=== PATIENT | female | born 1945 | race Caucasian/White ===

== ENCOUNTER 2021-12-31 07:13 | Inpatient (IN) | payer MEDICARE, OTHER ==
[~2021-12-31] VITALS: Ht 172.7 cm; Wt 49.9 kg
--- NOTE | 2021-12-31 07:13 | NUR ---
PT BIBRA 839 FROM HOME C/O GEN WEAKNESS X 2 MONTHS AND GLF LAST NIGHT. PT IS AAOX4, NOT IN RESPIRATORY DISTRESS, HOOKED TO GEOTHERMAL OPERATING ENGINEER, KEPT RESTED AND COMFORTABLE. WILL CONTINUE TO MONITOR.
--- NOTE | 2021-12-31 07:29 | NUR ---
AT BEDSIDE FOR EVAL.
--- NOTE | 2021-12-31 07:30 | NUR ---
IV LINE ESTABLISHED BLOOD DRAWN AND SENT TO LAB.
[2021-12-31] MEDS ORDERED: THYR90TA PO (07:43)
[2021-12-31] MEDS ORDERED: IV NS 0.9% 1,000 ML BAG IV ONE (08:00)
--- NOTE | 2021-12-31 08:16 | NUR ---
URINE SPECIMEN COLLECTED AND SENT TO LAB.
--- NOTE | 2021-12-31 08:37 | NUR ---
PT IS WHEELED TO CT SCAN VIA [facility].
[2021-12-31 08:46] LABS: BASOPHILS % (AUTO) 0.1 % (0.0-2.0); EOSINOPHILS % (AUTO) 0.2 % (0.0-6.0); HEMATOCRIT 39 % (33-45); HEMOGLOBIN 13.2 g/dL (11.5-14.8); LYMPHOCYTES # (AUTO) 0.5 K/uL (0.8-4.8); LYMPHOCYTES % (AUTO) 6.1 % (20.0-44.0); MEAN CORPUSCULAR HGB CONC 34 g/dl (31.0-36.0); MEAN CORPUSCULAR VOLUME 89 fL (82-100); MONOCYTES # (AUTO) 0.9 K/uL (0.1-1.30); MONOCYTES % (AUTO) 11.8 % (2.0-12.0); NEUTROPHILS # (AUTO) 6.1 K/uL (1.8-8.9); NEUTROPHILS % (AUTO) 81.8 % (43.0-81.0); PLATELET COUNT (AUTO) 257 K/uL (150-450); RED BLOOD CELL COUNT(AUTO) 4.41 MIL/uL (4.0-5.2); WHITE BLOOD COUNT (AUTO) 7.5 K/uL (4.3-11.0)
[2021-12-31 09:14] LABS: ALANINE AMINOTRANSFERASE 23 U/L (12-78); ALBUMIN 3.3 g/dL (3.4-5.0); ALKALINE PHOSPHATASE 67 U/L (46-116); ASPARTATE AMINOTRANSFERASE 25 U/L (15-37); BILIRUBIN,DIRECT 0.2 mg/dL (0.0-0.2); BILIRUBIN,TOTAL 0.8 mg/dL (0.2-1.0); CALCIUM, SERUM 9.1 mg/dL (8.5-10.1); CARBON DIOXIDE 30 mmol/L (21-32); CHLORIDE 99 mmol/L (98-107); CREATININE 0.6 mg/dL (0.6-1.3); GLUCOSE 108 mg/dL (74-106); POTASSIUM 2.9 mmol/L (3.5-5.1); SODIUM SERUM 137 mmol/L (136-145); TOTAL PROTEIN, SERUM 7.4 g/dL (6.4-8.2); UREA NITROGEN, BLOOD 18 mg/dL (7-18)
[2021-12-31 09:16] LABS: BILIRUBIN,URINE NEGATIVE (NEGATIVE); COLOR,URINE YELLOW (YELLOW); LEUKOCYTE ESTERASE ,URINE NEGATIVE (NEGATIVE); NITRITE, URINE NEGATIVE (NEGATIVE); PH,URINE 7.5 (5.0-8.0); PROTEIN,URINE NEGATIVE (NEGATIVE); UGLUCOSE NEGATIVE (NEGATIVE)
--- NOTE | 2021-12-31 09:37 | NUR ---
PT BP 191/98 REPORTED TO .
[2021-12-31] MEDS ORDERED: hydrALAZINE HCL IV 20 MG VIAL ONE (09:39)
--- NOTE | 2021-12-31 09:57 | NUR ---
COVID ANTIGEN AND PCR SPECIMEN OBTAINED AND SENT TO LAB.
[2021-12-31] MEDS ORDERED: hydrALAZINE HCL IV 20 MG VIAL IV ONE (10:00)
[2021-12-31] MEDS ORDERED: IV PREMIX D5 1/2NS + KCL 1,000 ML IV ONE (10:00)
--- NOTE | 2021-12-31 10:26 | NUR ---
MOVE SHEET SUBMITTED AND CALLED FOR BED.
[2021-12-31 10:28] LABS: RBC,URINE 0-3 /HPF (0-2); SQUAMOUS EPITHELIAL CELL,UR Rare /HPF (None Seen); URINE AMORPHOUS PHOSPHATES Moderate /HPF (None Seen); WBC,URINE 0-2 /HPF (0-3)
[2021-12-31 10:29] LABS: BACTERIA,URINE Few /HPF (None Seen)
[2021-12-31 10:31] LABS: THYROID STIMULATING HORMONE 0.451 uIU/mL (0.358-3.74)
--- NOTE | 2021-12-31 11:01 | NUR ---
PAGED EPIC CIGARETTE INSPECTOR.
--- NOTE | 2021-12-31 11:30 | NUR ---
SADIE BERNAL AT BEDSIDE FOR EVAL.
--- NOTE | 2021-12-31 11:55 | NUR ---
CALLED HOUSE [facility]P FOR MED SURG BED.
[2021-12-31] MEDS ORDERED: Z GUARD REMEDY 4 OZ OINT TP PRN (12:00)
[2021-12-31] MEDS ORDERED: MAG HYDROX/AL HYDROX/SIMETH 30 ML UDC PO PRN (12:00)
[2021-12-31] MEDS ORDERED: ACETAMINOPHEN 325 MG TABLET PO PRN (12:00)
[2021-12-31] MEDS ORDERED: ENOXAPARIN SODIUM 30 MG/0.3 ML DISP.SYRIN SQ SCH (12:00)
[2021-12-31] MEDS ORDERED: ONDANSETRON HCL/PF 4 MG/2 ML VIAL IVP PRN (12:00)
[2021-12-31] MEDS ORDERED: MAGNESIUM HYDROXIDE 30 ML UDC PO PRN (12:00)
[2021-12-31] MEDS ORDERED: MORPHINE SULFATE INJ 2 MG/ML DISP.SYRIN IV PRN (12:00)
[2021-12-31] MEDS ORDERED: HYDROCODONE/APAP 5/325MG TABLET PO PRN (12:00)
[2021-12-31] MEDS ORDERED: TEMAZEPAM 15 MG CAPSULE PO PRN (12:00)
[2021-12-31] MEDS ORDERED: ENOXAPARIN SODIUM 30 MG/0.3 ML DISP.SYRIN ONE (12:06)
--- NOTE | 2021-12-31 13:40 | NUR ---
GOT BED 102 AFTER 1400
--- NOTE | 2021-12-31 13:56 | NUR ---
CALLED [facility]E FOR REPORT RN NOT AVAILABLE.
--- NOTE | 2021-12-31 14:20 | NUR ---
REPORT GIVEN TO ZACK FELIX FOR ILEANA. WITH ONGOING IVF INFUSING WELL.
--- NOTE | 2021-12-31 14:30 | NUR ---
EXERCISE EQUIPMENT REPAIR TECHNICIAN NOTES RECEIVED PATIENT FROM ED. REPORT RECEIVED FROM ZACK VICK. PT ARRIVED WITH STABLE VITALS. A/O X 3-4 WITH PERIODS OF FORGETFULNESS. NO SOB. NO ACUTE SIGNS OF DISTRESS NOTED. NO C/O PAIN AT THIS TIME.BREATHING IS EVEN AND UNLABORED. ORIENTED PT TO CALL LIGHT, STAFF AND UNIT. IV ACCESS RAC#18 PATENT AND INTACT. FALL AND SAFETY PRECAUTIONS IMPLEMENTED WITH BED LOW AND LOCKED WITH SIDE RAILS UP X 2. WILL CONTINUE TO MONITOR THROUGHOUT SHIFT.
[2021-12-31] MEDS: IV NS 0.9% 1,000 ML IV PRN (16:11)
[2021-12-31 17:00] VITALS: BP 145/68
--- NOTE | 2021-12-31 18:30 | NUR ---
RN CLOSING NOTES PT IS IN BED, RESTING COMFORTABLY. A/O X 3-4 WITH PERIODS OF FORGETFULNESS. NO SOB. NO ACUTE SIGNS OF DISTRESS NOTED. NO C/O PAIN AT THIS TIME. BREATHING IS EVEN AND UNLABORED. IV ACCESS RAC#18 PATENT AND INTACT WITH NS 0.9% RUNNING AT 75MLS/HR. FALL AND SAFETY PRECAUTIONS MAINTAINED WITH BED LOW AND LOCKED WITH SIDE RAILS UP X 2. ALL NEEDS MET THROUGHOUT SHIFT. WILL ENDORSE CONTINUITY OF CARE TO ONCOMING SHIFT.
--- NOTE | 2021-12-31 19:10 | NUR ---
RN NOTES RECEIVED REPORT FROM MORNING NURSE. PATIENT A/O X3 WITH PERIODS OF CONFUSION NO SIGN OF DISTRESS OR DISCOMFORT AT THIS TIME. PATIENT ON ROOM AIR SATING 98%. WITH IV ACCESS AT R AC #18 PATENT FLUSHES WELL. WITH ONGOING IVF OF PNS @ 75 CC/HR. vITAL SIGNS TAKEN AND RECORDED. AFEBRILE. ALL SAFETY MEASURES IN PLACE AT ALL TIMES. CALL LIGHT WITHIN REACH. HOB ELEVATED. BED ON LOWEST POSITION AND LOCKED. WILL CONTINUE TO MONITOR THE PATIENT
[2021-12-31 20:00] VITALS: BP 111/59
[2022-01-01 04:00] VITALS: BP 147/75
[2022-01-01] MEDS: IV NS 0.9% 1,000 ML IV PRN (05:50)
--- NOTE | 2022-01-01 06:50 | NUR ---
RN NOTES PATIENT IN BED REMAIN STABLE NO SIGNIFICANT CHANGES IN HEALTH CONDITION. NO DISTRESS. PATIENT HAVE AN EPISODES OD CONFUSION. ALL DUE MEDS GIVEN ORDERED. ALL NEEDS ATTENDED PROMPTLY. ALL SAFETY MEASURES IN PLACE AT ALL TIMES. HOB ELEVATED. CALL LIGHT WITHIN REACH. BED ON LOWEST POSITION AND LOCKED. WILL CLOSELY MONITOR HE PATIENT. ENDORSED TO MORNING RN FOR ILEANA
[2022-01-01 07:00] LABS: BASOPHILS % (AUTO) 0.1 % (0.0-2.0); EOSINOPHILS % (AUTO) 0.1 % (0.0-6.0); HEMATOCRIT 36 % (33-45); LYMPHOCYTES # (AUTO) 0.5 K/uL (0.8-4.8); LYMPHOCYTES % (AUTO) 7.9 % (20.0-44.0); MEAN CORPUSCULAR HGB CONC 33 g/dl (31.0-36.0); MEAN CORPUSCULAR VOLUME 89 fL (82-100); MONOCYTES % (AUTO) 15.2 % (2.0-12.0); NEUTROPHILS # (AUTO) 5.2 K/uL (1.8-8.9); NEUTROPHILS % (AUTO) 76.7 % (43.0-81.0); PLATELET COUNT (AUTO) 245 K/uL (150-450); RED BLOOD CELL COUNT(AUTO) 4.08 MIL/uL (4.0-5.2); WHITE BLOOD COUNT (AUTO) 6.8 K/uL (4.3-11.0)
[2022-01-01 07:45] LABS: CREATININE 0.6 mg/dL (0.6-1.3); MAGNESIUM 1.9 mg/dL (1.8-2.4); PHOSPHORUS 2.7 mg/dL (2.5-4.9)
[2022-01-01 07:55] LABS: CALCIUM, SERUM 8.7 mg/dL (8.5-10.1)
[2022-01-01 08:04] LABS: POTASSIUM 2.8 mmol/L (3.5-5.1)
[2022-01-01 08:05] LABS: THYROID STIMULATING HORMONE 0.676 uIU/mL (0.358-3.74)
[2022-01-01] MEDS ORDERED: POTASSIUM CHLORIDE 20 MEQ TAB.PRT.SR PO ONE ×2 (08:30→12:00)
[2022-01-01] MEDS: PANTOPRAZOLE 40 MG TABLET.DR PO SCH (08:49)
[2022-01-01] MEDS: THYROID 30 MG TABLET PO SCH (08:49)
[2022-01-01] MEDS: ENOXAPARIN SODIUM 40 MG/0.4 ML DISP.SYRIN SQ SCH (08:50)
[2022-01-01 10:04] LABS: LYMPHOCYTES % (MANUAL) 6 % (16-48); MONOCYTES % (MANUAL) 16 % (0-11.0); NEUTROPHILS % (MANUAL) 78 (42-76)
[2022-01-01 12:00] VITALS: BP 171/89
[2022-01-01] MEDS ORDERED: ENSURE ENLIVE 237 ML LIQUID (VANILLA) PO SCH (17:00)
--- NOTE | 2022-01-01 19:15 | NUR ---
RN OPENING NOTES RECEIVED PT IN BED, A/O X 3-4, RESPIRATORY EVEN AND UNLABORED, NO SOB NOTED, NO S/S OF DISTRESS NOTED . PATIENT ON ROOM AIR . PATIENT NOTED WITH RAC #18, PATENT, INTACT AND FLUSHED WITH NS. ON HERRING CATHETER INTACT, INPLACED DRAINING WELL. ALL SAFETY MEASURES PROVIDED. BED IN LOWEST POSITION, LOCKED, BED ALARM ARMED. CALL LIGHT WITHIN REACH. WILL CONTINUE TO MONITOR.
--- NOTE | 2022-01-01 19:26 | NUR ---
RN NOTES PT RESTING IN BED, A/O X 3-4 WITH PERIODS OF FORGETFULNESS. NO SOB. NO ACUTE SIGNS OF DISTRESS NOTED. NO C/O PAIN AT THIS TIME. BREATHING IS EVEN AND UNLABORED. IV ACCESS RAC#18 PATENT AND INTACT. FALL AND SAFETY PRECAUTIONS MAINTAINED WITH BED LOW AND LOCKED WITH SIDE RAILS UP X 2. ALL NEEDS MET THROUGHOUT SHIFT. WILL ENDORSE CONTINUITY OF CARE TO ONCOMING SHIFT. DUE MEDICATIONS GIVEN.
[2022-01-01 20:00] VITALS: BP 185/89
--- NOTE | 2022-01-01 20:30 | NUR ---
RN NOTES PATIENT NOTED WITH BP 185/89, PATIENT ALERT ORIENTED DENIES HEADACHE AND DIZZINESS. LEFT MESSAGE TO MD'S OFFICE, WAITING FOR CALL BACK.
--- NOTE | 2022-01-01 20:42 | NUR ---
RN NOTES RECEIVED CALLED BACK FROM DR. LORD WITH NEW ORDER HYDRALAZINE 25MG PO Q6HRS. PRN FOR SBP ABOVE 160 NOTED AND CARRIED OUT. HYDRALAZINE 25MG PO GIVEN. CONTINUE TO MONITOR.
[2022-01-01] MEDS: hydrALAZINE HCL 25 MG TABLET PO PRN (21:04)
[2022-01-02 04:00] VITALS: BP 174/96
[2022-01-02 04:49] VITALS: BP 174/96
[2022-01-02] MEDS: hydrALAZINE HCL 25 MG TABLET PO PRN (04:49)
--- NOTE | 2022-01-02 05:01 | NUR ---
RN notes Received patient in bed resting comfortably with no distress noted. Breathing even and unlabored. On room air tolerating well. Alert and oriented, able to verbally communicate needs. Noted with elevated BP 174/96. Hydralazine 25mg given at 0449. Will continue to monitor. Kept clean and dry. Will endorse to next shift for continuity of care.
[2022-01-02] MEDS: PANTOPRAZOLE 40 MG TABLET.DR PO SCH (07:30)
--- NOTE | 2022-01-02 08:11 | NUR ---
RN Opening Note Patient received in bed, AO x 3-4, forgetful, no distress observed, able to responds all stimuli. Respiratory even and unlabored on room air. Skin is warm to touch, keep clean/dry, intact IV site. Kept elevated HOB for ensure airway/aspiration precaution and remain lower position of the bed for safety. call light within reach, will continue to monitor.
[2022-01-02] MEDS: THYROID 30 MG TABLET PO SCH (09:19)
[2022-01-02] MEDS: ENOXAPARIN SODIUM 40 MG/0.4 ML DISP.SYRIN SQ SCH (09:22)
--- NOTE | 2022-01-02 12:05 | NUR ---
PAtient discharge ti Addendum: 01/02/22 at 1207 by CONCETTA VALDEZ RN Error
[2022-01-02 12:07] LABS: CALCIUM, SERUM 8.8 mg/dL (8.5-10.1); CREATININE 0.6 mg/dL (0.6-1.3); POTASSIUM 3.1 mmol/L (3.5-5.1)
--- NOTE | 2022-01-02 12:07 | NUR ---
Patient discharge to [facility], given report Rayne RN include shirt ironer supervisor time.
[2022-01-02] MEDS ORDERED: POTASSIUM CHLORIDE 20 MEQ TAB.PRT.SR PO ONE (12:30)
--- NOTE | 2022-01-02 12:36 | NUR ---
Patient noted potassium level is 3.1, given 60meq before patient discharge.
--- NOTE | 2022-01-02 13:32 | NUR ---
2 vacation guide picked up patient and given report, in stable condition.
== END 2022-01-02 13:33 | DRG 552 ==
LOC: EDSEX 07:17 → ER 07:17 → MEDSG1 13:47
PROVIDERS: ADMIT Nurse Practitioner Acute Care; ATTEND Nurse Practitioner Acute Care
DX: M51.37 Other intervertebral disc degeneration, lumbosacral region (principal); D84.9 Immunodeficiency, unspecified; R26.9 Unspecified abnormalities of gait and mobility; E87.6 Hypokalemia; J44.9 Chronic obstructive pulmonary disease, unspecified; E03.9 Hypothyroidism, unspecified; Z20.822 Contact with and (suspected) exposure to COVID-19; Z88.0 Allergy status to penicillin; Z88.2 Allergy status to sulfonamides; Z91.018 Allergy to other foods; G43.909 Migraine, unspecified, not intractable, without status migrainosus; Z87.891 Personal history of nicotine dependence; I70.0 Atherosclerosis of aorta; I70.8 Atherosclerosis of other arteries; I71.4 Abdominal aortic aneurysm, without rupture; M48.00 Spinal stenosis, site unspecified; W19.XXXA Unspecified fall, initial encounter
CPT/HCPCS: 36415; 70450-TC; 71045-TC; 72131-TC; 80048-TC; 80076-TC; 81001; 82962-TC; 83735-TC; 84100-TC; 84443-TC; 84484-TC; 85025-TC; 87081-TC; 92526; 92611-TC; 97116-TC; 97530-TC; G0378; J0360; J1650; J3490; J7030; U0003